=== PATIENT | female | born 1950 | race Caucasian/White ===

== ENCOUNTER 2018-07-26 07:16 | Day surgery (SDC) | payer MEDICARE ==
[~2018-07-26] VITALS: Ht 157.5 cm; Wt 52.8 kg
[~2018-07-26 07:16] MED LIST: ACEASPCAF PO; ALPR.5 PO; ALPR.5CR PO; BENTYL10 MG PO; CALCNI; CLOB.05TC TOP; CLON.5 PO; CLON1 PO; DOXY100 PO; ESCI10 PO; ESCI20 PO; ESTR2 PO; Flonase 0.05% N16 GM; HYDACE10B PO; HYDACE5 PO; HYOS0.375T PO; LANS30EC PO; METPHE10 PO; MONT10T PO; Multiple Vitam1 EAC1 PO; ONDA4 PO; OXYACE5T PO; PANT40 PO; PROACE100 PO; RISP.5 PO
[2018-07-26] MEDS ORDERED: HYDR1TAB94 (07:54)
== END 2018-07-26 09:55 | disposition home or self-care (01) ==
LOC: ORSCSDS 07:16
PROVIDERS: Internal Medicine Gastroenterology
PROC: 0DBL8ZX Excision of Transverse Colon, Via Natural or Artificial Opening Endoscopic, Diagnostic (ICD-10-PCS; principal; 2018-07-26 08:45)
DX: Z12.11 Encounter for screening for malignant neoplasm of colon (principal); Z86.010 Personal history of colon polyps; D12.3 Benign neoplasm of transverse colon; K57.30 Diverticulosis of large intestine without perforation or abscess without bleeding; K64.8 Other hemorrhoids; I10 Essential (primary) hypertension; J45.909 Unspecified asthma, uncomplicated; K21.9 Gastro-esophageal reflux disease without esophagitis; Z79.899 Other long term (current) drug therapy
CPT/HCPCS: 88305; J1980; J7120

== ENCOUNTER 2019-05-17 08:37 | Day surgery (SDC) | payer MEDICARE ==
[~2019-05-17] VITALS: Ht 152.4 cm; Wt 49.2 kg
[~2019-05-17 08:37] MED LIST changes: +Calcitonin-Sal3.7 ML; +Estradiol1 MG PO; +HYDR1TAB94; +Halobetasol Pro15 GM TOP
--- NOTE | 2019-05-17 09:26 | NUR ---
05/17/19 0926 Michelle Matthews IV ATTEMPT BY NARCISO RODRIGUEZ IN RIGHT FOREARM. IV INFILTRATED IMMEDIATLY ON INSERTION. PRESSURE WAS APPLIED TO THE AREA AND COBAN APPLIED. SLIGHT BRUISING NOTED
== END 2019-05-17 10:55 | disposition home or self-care (01) ==
LOC: ORSCSDS 08:37
PROVIDERS: Internal Medicine Gastroenterology
PROC: 0DB98ZX Excision of Duodenum, Via Natural or Artificial Opening Endoscopic, Diagnostic (ICD-10-PCS; principal; 2019-05-17 11:00)
PROC: 0DB68ZX Excision of Stomach, Via Natural or Artificial Opening Endoscopic, Diagnostic (ICD-10-PCS; principal; 2019-05-17 11:00)
DX: R10.13 Epigastric pain (principal); K22.70 Barrett's esophagus without dysplasia; Z87.11 Personal history of peptic ulcer disease; J45.909 Unspecified asthma, uncomplicated; I10 Essential (primary) hypertension; F41.8 Other specified anxiety disorders; Z79.899 Other long term (current) drug therapy
CPT/HCPCS: 88305; 88342; J2704; J7120